=== PATIENT | male | born 1955 | race Caucasian/White ===

== ENCOUNTER 2016-10-20 18:08 | Emergency (ER) | payer OTHER ==
[~2016-10-20] VITALS: Ht 172.7 cm; Wt 94.2 kg
[~2016-10-20 18:08] MED LIST: ATOR20TA PO; CYCL-36 PO; IBUP800T23 PO; LISI-363 PO; META800T81 PO; METF500 PO
[2016-10-20 18:16] VITALS: BP 146/100; PULSE 94; RESP 18; TEMP 98.3; O2SAT 93
--- NOTE | 2016-10-20 18:35 | PD ---
HPI Chief Complaint: Musculoskeletal Complaint Time Seen by Provider: 18:32 Travel History International Travel<30 days: Yes Contact w/Intl Traveler<30days: Yes Name of Country Traveled to: [place] Traveled to known affect area: No History of Present Illness HPI Patient comes in complaining of left-sided rib pain that began shortly prior to arrival. Patient states he was standing on a six-foot ladder when he fell less than 5 feet. Patient states he landed with his left rib cage on the ladder. Patient denies hitting his head or loss of consciousness. Patient complaining of having aching pain in his left lateral rib cage radiates around his rib cage. Pain is worse with deep inspiration, certain movement, and laughing. Patient denies doing anything for this prior coming to the emergency department. Denies being on any blood thinners, abdominal pain, shortness of breath, or loss of bowel or bladder. PFSH Past Medical History Cardiovascular Problems: Yes (HTN) High Cholesterol: Yes Diabetes: Yes ("BORDERLINE") Diminished Hearing: No Hypertension: Yes Social History Alcohol Use: No Tobacco Use: No Substance Use: No Allergies-Medications (Allergen,Severity, Reaction): Coded Allergies: Contrast Media (Verified Allergy, Unknown, Anaphylaxis, 10/20/16) Reported Meds & Prescriptions Reported Meds & Active Scripts Active Ibuprofen 800 Mg Tab 800 Mg PO Q8H PRN Reported Pioglitazone (Pioglitazone HCl) 45 Mg Tab 45 Mg PO DAILY Hydrochlorothiazide 12.5 Mg Tab 12.5 Mg PO DAILY Lisinopril 10 Mg Tab 10 Mg PO DAILY Review of Systems Except as stated in HPI: all other systems reviewed are Neg Physical Exam Narrative GENERAL: Well-developed, overly nourished, in no acute distress, and non-ill appearing. SKIN: Focused skin assessment warm and dry. HEAD: Atraumatic. Normocephalic. EYES: Pupils equal and round. EOMI. No scleral icterus. No injection or drainage. ENT: No nasal bleeding or discharge. Mucous membranes pink and moist. NECK: Trachea midline. Supple. No nuclear rigidity. CARDIOVASCULAR: Regular rate and rhythm. No murmur appreciated. RESPIRATORY: No accessory muscle use. No respiratory distress. Clear to auscultation. Breath sounds equal bilaterally. Patient reports tenderness to left posterior lateral rib cage. There is no crepitus or step-off noted. GASTROINTESTINAL: Abdomen soft, non-tender, nondistended. Hepatic and splenic margins not palpable. Normal bowel sounds 4. No pulsatile mass. MUSCULOSKELETAL: No obvious deformities. No clubbing. No cyanosis. No edema. Full range of motion. NEUROLOGICAL: Awake and alert. No obvious cranial nerve deficits. Motor grossly within normal limits. Normal speech. PSYCHIATRIC: Appropriate mood and affect; insight and judgment normal. Data Data Last Documented VS Vital Signs Date Time Temp Pulse Resp B/P Pulse Ox O2 Delivery O2 Flow Rate FiO2 10/20/16 18:16 98.3 94 18 146/100 93 Orders Ribs, Uni (W/Exp Cxr-Min 3vw) (10/20/16 ) Resp Incentive Spirometry (10/20/16 ) Ibuprofen (Motrin) (10/20/16 18:45) MDM Medical Decision Making Medical Screen Exam Complete: Yes Emergency Medical Condition: Yes Differential Diagnosis Fracture, contusion, pneumothorax, other Narrative Course The patient suffered rib fracture with chest wall contusion. There is no clinical evidence to suggest intrathoracic injury nor cardiac injury at this time. There was no clinical evidence to suggest flail chest. The patient moves air well without difficulty and is clear to auscultation. Heart sounds are audible without rubs, murmurs or gallops. There is no palpable crepitus. Pulses are symmetrical and strong. There is no significant tenderness over the lower chest to suggest injury to the liver nor spleen. Chest X-ray was normal without evidence of pneumothorax or hemothorax. The mediastinum appeared within normal limits. Diagnosis was discussed with the patient. The patient was discharged on pain medication and with a Inspiratory Spirometer after training. The patient is to return if develops any worsening pain, difficulty breathing, or if coughs up blood or develops fever. Patient agrees with plan and was recommended to follow up with their regular physician. Patient in no obvious distress upon re-evaluation. All pertinent Radiology result(s) discussed with patient. Patient was asked if they wanted to speak to my attending, which the patient did not wish to do at this time. Any questions/ concerns in reference to patient diagnosis/condition discussed and clarified prior to patient's discharge. Reinforced sheer importance of close follow up with patient's primary physician or primary care clinic. Instructed patient to return to ED immediately, if symptoms return/worsen. Pt showed understanding of above instructions. Further instructions and recommendations were detailed in discharge paperwork. Pt ambulated without difficulty out of ED at discharge. Diagnosis Primary Impression: Left rib fracture Qualified Code: S22.32XA - Closed fracture of one rib of left side, initial encounter Patient Instructions: General Instructions, Rib Fracture (ED) Additional Instructions: Follow-up with your primary care physician in 2-3 days for reevaluation. Take all medication as prescribed. Use incentive spirometer as instructed 10 times per hour while awake to help prevent pneumonia. Return to the emergency department if symptoms get worse. Med/Other Pt SpecificInfo: Prescription(s) given Scripts Ibuprofen 800 Mg [id number] Mg PO Q8H PRN (PAIN SCALE 1 TO 10) #21 TAB Ref 0 Prov:Fish Leyva MD 10/20/16 Disposition: 01 DISCHARGE HOME Condition: Stable Ashish Sellers Oct 20, 2016 18:35
[2016-10-20] MEDS ORDERED: LISI10TA3 PO (18:39)
[2016-10-20] MEDS ORDERED: HYDR12.56 PO (18:39)
[2016-10-20] MEDS ORDERED: IBUPROFEN 800 MG TAB PO ONE (18:45)
[2016-10-20] MEDS ORDERED: PIOG45TA3 PO (18:45)
--- NOTE | 2016-10-20 19:30 | RADHPO ---
EXAM DATE/TIME: 10/20/2016 18:43 [facility] COMPARISON: No previous studies available for comparison. INDICATIONS : Left side rib pain post fall today. MEDICAL HISTORY : None. SURGICAL HISTORY : None. ENCOUNTER: Initial ACUITY: 1 day PAIN SCORE: 8/10 LOCATION: Left chest FINDINGS: There is a solitary fracture of the anterolateral left 6th rib only seen on one of the images. There is 2 mm displacement of the cortex. No other rib fractures seen. No evidence of pneumothorax on ex piratory view of the chest. CONCLUSION: Mildly displaced fracture of the anterolateral left 6th rib. Jony Cassidy MD on October 20, 2016 at 19:26 Board Certified Radiologist. This report was verified electronically.
[2016-10-20] MEDS ORDERED: IBUP800T23 PO (19:34)
== END 2016-10-20 19:41 | disposition home or self-care (01) ==
LOC: PHEFT 18:08
DX: S22.32XA Fracture of one rib, left side, initial encounter for closed fracture (principal); I10 Essential (primary) hypertension; E78.00 Pure hypercholesterolemia, unspecified
CPT/HCPCS: 71101; 94150; 99283